=== PATIENT | male | born 1980 | race Caucasian/White ===

== ENCOUNTER → 2017-05-17 | Outpatient (CLI) | payer BC ==
[~2017-05-17] MED LIST: AMOXICILLIN 50500 MG PO; CARAFATE 1GM1 G PO; CLONAZEPAM PO; FLEXERIL 1010 MG/TAB PO; KLONOPIN 0.5MG0.5 MG PO; LORTAB 5/500 501 TAB PO; MIRALAX PA17 GM/Dose PO; MOTRIN 800800 MG/TAB PO; NAPROSYN500 MG PO; NORCO 325 MG-51 TAB PO; NORCO 325 MG-7.1 TAB PO; PAXIL CR25 MG PO; PREDNISONE20 MG PO; PRILOSEC 20MG20 MG PO; SERTRALINE; VALIUM 10MG10 MG/TAB PO; VALIUM 5MG T5 MG/TAB PO; VICODIN PO; ZOFRAN 4MG T4 MG/TAB PO; ZOLOFT 100MG100 MG PO; ZOLOFT 50MG50 MG PO
== END ==
LOC: COL.RAD 10:15
DX: R22.1 Localized swelling, mass and lump, neck (principal)

== ENCOUNTER 2018-05-22 13:29 | Outpatient (RCR) | payer BC | END 2018-08-20 | disposition home or self-care (01) | LOC: WSST | DX: R13.12 Dysphagia, oropharyngeal phase (principal) ==

== ENCOUNTER → 2018-10-03 | Outpatient (CLI) | payer OTHER | LOC: COL.RAD 12:56 | DX: S66.31 Strain of extensor muscle, fascia and tendon of other and unspecified finger at wrist and hand level (principal) ==

== ENCOUNTER 2018-10-04 14:55 | Outpatient (RCR) | payer OTHER | END 2018-11-05 | disposition home or self-care (01) | LOC: WSOH | DX: S60.212A Contusion of left wrist, initial encounter (principal); S66.318A Strain of extensor muscle, fascia and tendon of other finger at wrist and hand level, initial encounter; S63.502A Unspecified sprain of left wrist, initial encounter; X50.0XXA Overexertion from strenuous movement or load, initial encounter; Y93.H2 Activity, gardening and landscaping; Y92.214 College as the place of occurrence of the external cause; Y99.0 Civilian activity done for income or pay; Z87.891 Personal history of nicotine dependence; Z79.899 Other long term (current) drug therapy | CPT/HCPCS: 24091; A6549 ==

== ENCOUNTER 2019-07-18 08:03 | Outpatient (RCR) | payer OTHER | END 2019-10-16 | disposition home or self-care (01) | LOC: WSST | DX: R13.12 Dysphagia, oropharyngeal phase (principal) ==

== ENCOUNTER → 2019-08-27 | Outpatient (CLI) | payer OTHER | LOC: COL.RAD 12:54 | DX: S83.402D Sprain of unspecified collateral ligament of left knee, subsequent encounter (principal); M25.462 Effusion, left knee ==

== ENCOUNTER 2019-08-31 15:00 | Outpatient (RCR) | payer OTHER | END 2019-09-16 | disposition home or self-care (01) | LOC: WSOH | DX: S83.402A Sprain of unspecified collateral ligament of left knee, initial encounter (principal); M25.462 Effusion, left knee; Z98.890 Other specified postprocedural states; Z87.891 Personal history of nicotine dependence; X50.1XXA Overexertion from prolonged static or awkward postures, initial encounter; Y93.H2 Activity, gardening and landscaping | CPT/HCPCS: 24774; L1810 ==

== ENCOUNTER → 2022-11-09 | Outpatient (CLI) | payer BC, OTHER | LOC: COL.RAD 11:08 | DX: N45.1 Epididymitis (principal) ==

== ENCOUNTER 2024-04-04 09:18 | Emergency (ER) | payer BC, OTHER ==
[~2024-04-04] VITALS: Ht 182.9 cm; Wt 86.4 kg
[~2024-04-04 09:18] MED LIST changes: +PEPCID 20MG TAB20 MG PO
[2024-04-04 09:22] VITALS: TEMP 98.2
[2024-04-04 10:34] LABS: COLLECTION METHOD CLEAN CATCH
[2024-04-04 10:38] LABS: BASO % 0.3 % (0.0-2.0); EOS % 0.2 % (0.0-4.0); GRAN % 77.3 % (42.2-75.2); HEMOGLOBIN 15.8 g/dl (13.5-18.0); LYMPH # 1.5 K/mm3 (1.2-3.4); MEAN CELL VOLUME 91 fl (80.0-100.0); MEAN CORPUSCULAR HEMOGLOBIN 31 pg (27-31); MEAN CORPUSCULAR HGB CONC 34 g/dl (33.0-37.0); MEAN PLATELET VOLUME 12.5 fl (7.4-10.4); MONO # 0.5 K/mm3 (0.1-0.6); PLATELET COUNT 252 K/mm3 (130-400); RED BLOOD COUNT 5.04 M/mm3 (4.20-5.60); REDCELL DISTRIBUTION WIDTH-CV 11.9 % (11.5-14.5)
[2024-04-04 10:56] LABS: ALANINE AMINOTRANSFERASE 31 U/L (0-55); ALBUMIN 4.3 g/dL (3.5-5.0); ALKALINE PHOSPHATASE 55 U/L (40-150); ANION GAP 13 mmol/L (7-16); AST,SGOT 27 U/L (5-34); BILIRUBIN,TOTAL 2.1 mg/dL (0.2-1.2); BLOOD UREA NITROGEN 14 mg/dL (9-21); CALCIUM 9.6 mg/dL (8.4-10.2); CHLORIDE 105 mEq/L (98-107); CREATININE, serum 0.96 mg/dL (0.72-1.25); GLUCOSE 100 mg/dL (70-99); POTASSIUM 3.9 mEq/L (3.5-4.5); SODIUM 141 mEq/L (136-145); TOTAL PROTEIN 7.6 g/dl (6.2-8.1)
[2024-04-04 11:04] LABS: TROPONIN-I < 0.010 ng/mL (0.00-0.033)
[2024-04-04 11:13] LABS: URINE APPEARANCE Clear (CLEAR/HAZY); URINE COLOR Yellow (YELLOW)
[2024-04-04 11:14] LABS: PH 8.5 (5.0-8.5); URINE BLOOD Negative (NEGATIVE); URINE GLUCOSE Negative (NEGATIVE); URINE KETONE Negative (NEGATIVE); URINE NITRATE Negative (NEGATIVE); URINE PROTEIN(semi-quant) Negative (NEGATIVE)
[2024-04-04 12:46] VITALS: BP 136/89; PULSE 64
== END 2024-04-04 12:46 | disposition home or self-care (01) ==
LOC: COL.ER 09:18
PROVIDERS: Physician Assistant
DX: R53.83 Other fatigue (principal); Z87.891 Personal history of nicotine dependence